=== PATIENT | female | born 1985 | race Caucasian/White ===

== ENCOUNTER 2016-12-14 10:02 | Observation (INO) ==
[2016-12-14 10:51] LABS: Basophils % 0.3 %; Eosinophils # 0.1 K/mcL (0.0-0.6); Eosinophils % 0.5 %; Hematocrit 28.7 % (35.3-44.9); Hemoglobin 9.3 g/dL (11.5-15.4); Immature Granulocytes % 0.9 % (0-4); Immature Platelets 3.5 % (1.1-6.1); Lymphocytes # 1.6 K/mcL (0.6-4.6); Lymphocytes % 17.1 %; Mean Corpuscular HGB Conc 32.4 g/dL (31.6-35.5); Mean Corpuscular Hemoglobin 26.6 pg (28.0-33.3); Mean Corpuscular Volume 82.2 fL (83.0-100.0); Mean Platelet Volume 9.7 fL (9.4-12.4); Monocytes # 0.4 K/mcL (0.0-1.3); Monocytes % 4.4 %; Neutrophils # 7.2 K/mcL (1.6-8.9); Platelet Count 226 K/mcL (140-400); Red Blood Count 3.49 M/mcL (3.82-4.97); Red Cell Distribution Width 13.7 % (11.5-14.5); Segmented Neutrophils % 76.8 %
[2016-12-14 11:05] LABS: Alanine Aminotransferase 10 Units/L (0-55); Aspartate Amino Transferase 14 Units/L (5-34); BUN/Creatinine Ratio 16 (6-26); Blood Urea Nitrogen 10 mg/dL (7-20); Lactate Dehydrogenase 156 Units/L (159-327); Uric Acid 3.9 mg/dL (2.6-6.0); eGFR For African Americans > 60 (> 60); eGFR For Non-African Americans > 60 (> 60)
[2016-12-14 11:37] LABS: Protein/Creatinine Ratio,Urine 0.31 mg/mg (0-0.20)
--- NOTE | 2016-12-14 12:34 | OB/GYN Progress Note ---
Date of Encounter: 12/14/16 Time of Encounter: 12:30 - Assessment and Plan (1) Hypertension affecting in third trimester Current Visit: Yes Status: Acute Discharge home with labor precautions and hypertension precautions. Discussed [place] NST in office twice weekly beginning Sunday12/18/[address] Lugo Discussed plan of care with Dr Melendez. Subjective - Subjective Principal diagnosis: hypertension Interval history: Ms Kapoor is a at 34.5weeks that arrives to labor and delivery from the office for hypertension 160/90's and protein in urine. She states positive movement. She denies LOF, vaginal bleeding, headache, vision changes, and epigastic pain. Antepartum ROS: movement normal, no loss of fluid, no vaginal bleeding, no contractions Objective - Vital Signs Vital Signs: Intake and Output 12/13/16 12/14/16 12/14/16 23:59 07:59 15:59 Other: Weight 214 kg Patient Weight 12/14/16 23:59 Weight 214 kg - Exam FHR: category 1 FHR comments: 150's with 15x15 accels Auscultation: left: normal Abdomen: Present: normal appearance, gravid Uterus: Present: normal. Absent: firm, tenderness - Labs Labs: Abnormal lab results RBC 3.49 M/mcL (3.82-4.97) L 12/14/16 10:40 Hgb 9.3 g/dL (11.5-15.4) L 12/14/16 10:40 Hct 28.7 % (35.3-44.9) L 12/14/16 10:40 MCV 82.2 fL (83.0-100.0) L 12/14/16 10:40 MCH 26.6 pg (28.0-33.3) L 12/14/16 10:40 Lactate Dehydrogenase 156 Units/L (159-327) L 12/14/16 10:40 Protein/Creatinin Ratio 0.31 mg/mg (0-0.20) H 12/14/16 11:22
[2016-12-17 07:25] LABS: HSV 2 Glycoprotein G IgG 0.16 IV (<=0.90)
[2016-12-17 09:28] LABS: Herpes Simplex IgG (I&II COMB) >22.40 IV
== END 2016-12-14 12:34 | disposition home or self-care (01) ==
LOC: 1NENULAB
PROVIDERS: ADMIT Obstetrics & Gynecology; ATTEND Obstetrics & Gynecology

== ENCOUNTER 2016-12-18 15:03 | Observation (INO) ==
[2016-12-18 15:51] LABS: Basophils % 0.4 %; Eosinophils # 0.1 K/mcL (0.0-0.6); Eosinophils % 0.6 %; Hematocrit 29.9 % (35.3-44.9); Hemoglobin 9.7 g/dL (11.5-15.4); Immature Granulocytes % 1.2 % (0-4); Lymphocytes # 1.6 K/mcL (0.6-4.6); Mean Corpuscular HGB Conc 32.4 g/dL (31.6-35.5); Mean Corpuscular Hemoglobin 26.4 pg (28.0-33.3); Mean Corpuscular Volume 81.3 fL (83.0-100.0); Mean Platelet Volume 9.9 fL (9.4-12.4); Monocytes # 0.5 K/mcL (0.0-1.3); Monocytes % 4.7 %; Neutrophils # 8.5 K/mcL (1.6-8.9); Platelet Count 241 K/mcL (140-400); Red Blood Count 3.68 M/mcL (3.82-4.97); Red Cell Distribution Width 13.5 % (11.5-14.5); Segmented Neutrophils % 78.1 %
[2016-12-18 16:04] LABS: Alanine Aminotransferase 9 Units/L (0-55); Aspartate Amino Transferase 13 Units/L (5-34); BUN/Creatinine Ratio 17 (6-26); Blood Urea Nitrogen 10 mg/dL (7-20); Lactate Dehydrogenase 163 Units/L (159-327); Uric Acid 3.6 mg/dL (2.6-6.0); eGFR For African Americans > 60 (> 60); eGFR For Non-African Americans > 60 (> 60)
--- NOTE | 2016-12-18 16:36 | OB/GYN Progress Note ---
Date of Encounter: 12/18/16 Time of Encounter: 16:30 - Assessment and Plan (1) and not yet delivered in third trimester Current Visit: Yes Status: Acute (2) Hypertension affecting in third trimester Current Visit: No Status: Acute will do a 24 hr urine and start labetolol 100mg BID Subjective - Subjective Interval history: Patient is a 31-year-old 2 para 1 at 35-2/7 weeks who was sent to labor and delivery from the office secondary to elevated blood pressures. Patient had blood pressures 150s over 90s in the office and she was sent up for PIH workup. Patient denies headache with vision scotoma. She did have a NST in the office today which was reactive and ultrasound shows that she has polyhydramnios with an HERBERT of 27 cm. Blood pressures in labor and delivery initially were 150s over 90s but with rest dropped into the 130s over 80s. PIH labs obtained and were within normal limits. 24 hour urine was started. Patient will be discharged home with a prescription for labetalol 100 mg twice a day she will drop off her 25 urine in the office tomorrow and is already scheduled for follow-up in 3 days. She is having contractions, but not feeling them and was not checked in the office. Antepartum ROS: other (PIH work up) Objective - Vital Signs Vital Signs: Vital Signs Temp 12/18/16 15:07 98.5 F Intake and Output 12/18/16 12/18/16 12/18/16 07:59 15:59 23:59 Other: Weight 76.4 kg Patient Weight 12/18/16 23:59 Weight 76.4 kg - Exam FHR: category 1 FHR comments: 140's reactive contractons occ q 3-5 min Auscultation: bilateral: normal Abdomen: Present: gravid Uterus: Present: firm - Labs Labs: Abnormal lab results RBC 3.68 M/mcL (3.82-4.97) L 12/18/16 15:40 Hgb 9.7 g/dL (11.5-15.4) L 12/18/16 15:40 Hct 29.9 % (35.3-44.9) L 12/18/16 15:40 MCV 81.3 fL (83.0-100.0) L 12/18/16 15:40 MCH 26.4 pg (28.0-33.3) L 12/18/16 15:40
== END 2016-12-18 16:44 | disposition home or self-care (01) ==
LOC: 1NENULAB
PROVIDERS: ADMIT Obstetrics & Gynecology; ATTEND Obstetrics & Gynecology

== ENCOUNTER 2017-01-10 10:25 | Inpatient (IN) ==
--- NOTE | 2017-01-10 11:32 | OB/GYN History & Physical ---
Date of Encounter: 01/10/17 Time of Encounter: 11:18 Assessment and Plan (1) Hypertension affecting in third trimester Current visit: Yes Status: Acute PIH blood and urine sent Cyclical blood pressures NST POC discussed with Dr Lugo (2) and not yet delivered in third trimester Current visit: Yes Status: Acute PIH blood and urine sent Cyclical blood pressures NST POC discussed with Dr Lugo History of Present Illness Chief complaint: HTN & Proteinuria HPI: Ms. Kapoor is a 32 year old female at 38 weeks 4 days that presents for a scheduled visit and growth ultrasound. She reports an active fetus and denies loss of fluid or vaginal bleeding. She reports that she has had increasing facial swelling for about 3 days but has had swelling that will resolve in her extremities until this morning when it did not go down overnight. She denies any headache, blurred vision, or epigastric pain. The fetus presents breech per her growth ultrasound. The ultrasound also shows that the fetus is in the 72nd percentile for growth and the HERBERT is 25. Her blood pressure in the office was 168/105. She is transferred from the office to labor and delivery for a PIH evaluation. Obstetrical History - Pregnancies : 2 Para: 1 Term: 1 : 0 Ab's: 0 Livin Medications and Allergies Iron Chews 325 mg PO BID 12/14/16 [History] Tablet 1 tab PO DAILY 12/14/16 [History] Labetalol [Trandate] 100 mg PO BID #60 tablet 12/18/16 [Rx] Allergies No Known Allergies Allergy (Verified 12/14/16 11:09) Review of System OB All systems PM: reviewed and no additional remarkable complaints except as stated (As per HPI) Exam - Constitutional Constitutional: well developed, well nourished, no acute distress, average body habitus - HEENT HEENT: Normocephaly, Mucus Membranes Moist, Other (mild facial edema) - Neck Neck exam: full ROM - Lungs Respiratory exam: CTAB - Cardiovascular Cardiovascular exam: RRR, +S1, +S2 - Breasts Breast: bilateral: normal - Abdomen Abdomen: Present: bowel sounds normal, gravid - Extremities Extremities exam: full ROM, pedal edema (2+) Deep Tendon Reflex Grade: 3+ Normal But Brisk - Uterus Uterus exam: Present: normal size, normal contour. Absent: tender Results All other labs normal. - VTE Reasons for not Prescribing Prophylaxis: Treatment not Indicated - Low risk for VTE
[2017-01-10 11:40] LABS: Basophils % 0.3 %; Eosinophils # 0.1 K/mcL (0.0-0.6); Eosinophils % 0.5 %; Hematocrit 29.6 % (35.3-44.9); Hemoglobin 9.4 g/dL (11.5-15.4); Immature Granulocytes % 1.2 % (0-4); Lymphocytes # 1.4 K/mcL (0.6-4.6); Mean Corpuscular HGB Conc 31.8 g/dL (31.6-35.5); Mean Corpuscular Hemoglobin 26.1 pg (28.0-33.3); Mean Corpuscular Volume 82.2 fL (83.0-100.0); Mean Platelet Volume 10.5 fL (9.4-12.4); Monocytes # 0.6 K/mcL (0.0-1.3); Neutrophils # 8.3 K/mcL (1.6-8.9); Platelet Count 224 K/mcL (140-400); Red Cell Distribution Width 15.1 % (11.5-14.5)
[2017-01-10 11:49] LABS: Protein/Creatinine Ratio,Urine 0.43 mg/mg (0-0.20)
[2017-01-10 11:54] LABS: Alanine Aminotransferase 11 Units/L (0-55); Aspartate Amino Transferase 19 Units/L (5-34); BUN/Creatinine Ratio 21 (6-26); Blood Urea Nitrogen 14 mg/dL (7-20); Lactate Dehydrogenase 189 Units/L (159-327); Uric Acid 5.5 mg/dL (2.6-6.0); eGFR For African Americans > 60 (> 60); eGFR For Non-African Americans > 60 (> 60)
[2017-01-10] MEDS: Ringers Solution, Lactated 1,000 ML IVC SCH ×3 (12:54→18:06)
[2017-01-10] MEDS ORDERED: Famotidine 20 MG/2 ML VIAL IVP ONE (15:02)
[2017-01-10] MEDS ORDERED: Metoclopramide 10 MG/2 ML VIAL IVP ONE (15:02)
[2017-01-10] MEDS ORDERED: Ondansetron 4 MG/2 ML VIAL IVP PRN (15:03)
[2017-01-10] MEDS ORDERED: Famotidine 20 MG/2 ML VIAL IVP PRN (15:03)
[2017-01-10] MEDS ORDERED: Naloxone 0.4 MG/ML INJ IVP PRN (15:03)
--- NOTE | 2017-01-10 15:18 | OB Labor Progress Note ---
Date of Encounter: 01/10/17 Time of Encounter: 15:16 Labor Progress Note - Subjective Subjective: Pt comfortable, fetus active, denies significant changes - Vital Signs Vital Signs: afeb, vss, bp 130s/90s - Cervix Cervix: 50/-3 - Heart Tones Heart Tones: 140s, CAT1 - [place]: rare ctx - Interventions Interventions: 38 wk IUP, bedside US confirms Breech presentation, vtx maternal left, preeclampsia - Plan Plan: attempt version with epidural anesthesia, if distress or failure of version, will proceed with primary c/s. R+B reviewed, ICG. Case discussed with Dr Kike Rinaldi
[2017-01-10] MEDS ORDERED: *HR* FentaNYL (PF) 100 MCG/2 ML VIAL ONE (16:02)
[2017-01-10] MEDS ORDERED: Lidocaine/EPI 1:200k 2% PF 20 ML VIAL ONE (17:20)
--- NOTE | 2017-01-10 17:26 | Anesthesia Evaluation PreOp ---
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: Denies Any Significant HX Other Medical History: Renal (frequent uti) Anesthesia History: No Prior Anesthetic Complications (never had anesthesia) : Yes Test: Positive Alcohol Use: none Drug use: none Medications and Allergies Iron Chews 325 mg PO BID 12/14/16 [History] Tablet 1 tab PO DAILY 12/14/16 [History] Labetalol [Trandate] 100 mg PO BID #60 tablet 12/18/16 [Rx] Allergies No Known Allergies Allergy (Verified 12/14/16 11:09) - Meds/Allergy Pre-op Review Medications Reviewed: Yes Allergies Reviewed: Yes Beta Blockers on Current Med List: Yes (took 01/09 1900) If Beta Blockers taken, Date/Time (Last Dose taken): 01/09 1900 Anesthesia Results - Labs 01/10/17 11:00 01/10/17 11:00 Anesthesia Exam 3 Vital Signs Time 1553 BP 131/82 Pulse 88 Resp 16 O2 Sat Height: 69 Weight: 215 NPO (# of Hours): 8 hours Pain Scale: 0 Pain Scale Used: Numeric (1 - 10) - HEENT Pupil (Motor): Pupils equal Mallampati: III Teeth: Normal Oral Opening: Greater than 3 - SERVICE LINE LAYER LOC: Oriented SERVICE LINE LAYER Motor: Normal RUE, Normal LUE, Normal RLE, Normal LLE, Normal Face SERVICE LINE LAYER Sensory: Normal: RUE, LUE, RLE, LLE, Face - Cardiac Rhythm: Regular Murmur: None JVD: No Carotid Bruit: No - Pulmonary Breath Sounds: bilateral Clear Respiratory Effort: Symmetrical Anesthesia Assess/Plan ASA Score: 2 Modified [place] Scale for Level of Consciousness: Cooperative, oriented, and tranquil Anesthetic Plan: Regional Monitoring Plan: Standard Monitors Recovery Plan: Other
--- NOTE | 2017-01-10 17:31 | Anesthesia Procedures ---
Date of Encounter: 01/10/17 Time of Encounter: 16:25 Procedures: Anesthesia - Epidural/Spinal Patient ID/Chart reviewed: Yes Patient examined: Yes OB Eval: Gestational age: 38 weeks 4 days OB Eval: : 2 OB Eval: Hx Para: 1 OB Eval: Dilated at (cm): 1 OB Eval: Contractions: Non-stressed pattern Consent Obtained: Yes Supplemental Oxygen: Nasal Cannula Supplemental Oxygen Rate (L/min): 2 Site Prep: Aseptic Technique, Sterile prep and drape, Povidone-Iodine 1% Patient position: upright Local Anesthetic: Lidocaine 1% Amount of Local Anesthetic used: 3 Touhy Needle Gauge: 18 Touhy Needle Depth (cm): 7 Catheter Depth at Skin (cm): 14 Test Dose (1.5% Lido + Epi): Volume given (mls): 3 Test Dose Result: Negative (15 ml xylocaine 2% with epi given in 5 ml increments ) Loading Dose: Fentanyl (mcg): 100 Loading Dose Administered: Thru Catheter Infusion Med: 0.125% Bupivacaine w/ 2 mcg/ml Fentanyl Infusion Rate (mls/hr): [address]: Tegaderm, Tape Interspace Used: L3-L4 Loss of Resistance (AN): Yes (air) Blood: No CSF: No Paresthesia: No Procedure: see or record for vitals, heart tones 140's
[2017-01-10] MEDS ORDERED: *HR* FentaNYL (PF) 100 MCG/2 ML VIAL EP ONE (17:32)
[2017-01-10] MEDS ORDERED: Bupivacaine-MPF 0.25% 10 ML VIAL EP ONE (17:32)
[2017-01-10] MEDS ORDERED: Epidural Premix (fent/bupiv) 110 ML EP ONE (17:36)
--- NOTE | 2017-01-10 17:36 | OB Labor Progress Note ---
Date of Encounter: 01/10/17 Time of Encounter: 17:33 Labor Progress Note - Subjective Subjective: Patient comfortable in bed post version. Epidural in place. - Cervix Cervix: 1/thick/-3 mid position and moderate softness - Heart Tones Heart Tones: FHTs 135 moderate variability with 15 x15 accels. no decels present - [place]: No contractions noted. uterus palpates soft - Interventions Interventions: Cervical galindo bulb placed without difficulty. Patient tolerated well. Fetus tolerated well - accels present with scalp stimulation. - Plan Plan: Continue routine labor management Epidural in place for pain control Vaginal delivery expected POC discussed with Dr Lugo
[2017-01-10] MEDS ORDERED: Epidural Premix (fent/bupiv) 110 ML EP SCH (17:45)
[2017-01-10] MEDS ORDERED: miSOPROStol 25 MCG TABLET PO PRN (17:55)
--- NOTE | 2017-01-10 17:56 | OB/GYN Procedure Note ---
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 The patient was placed on the surgical table and ultrasound was performed confirming breech presentation. The patient was sat up and positioned for epidural anesthesia. Epidural was placed per Vu Beaulieu CRNA successfully. The patient was then repositioned in supine presentation. heart tones were observed during this whole time and were reassuring, 130s baseline, category 1. Contractions were irregular and infrequent. A vag prep was performed and a Mclean was placed with clear urine seen once the patient was confirmed adequately comfortable with epidural. Ultrasound was placed on the abdomen again confirming breech presentation. Mineral oil was then used to coat the maternal abdomen. With pressure from the sacrum and the fetus was guided into the vertex presentation. This was confirmed with ultrasound. heart tones were auscultated and then put on the monitor. They remained category 1 with a 130s baseline. The patient was then taken out of the operating room which was a double set up for emergency and taken to a labor and delivery room for induction and anticipated vaginal delivery.
--- NOTE | 2017-01-10 23:20 | OB Labor Progress Note ---
Date of Encounter: 01/10/17 Time of Encounter: 23:18 Labor Progress Note - Subjective Subjective: The patient is comfortable, she feels some contractions - Vital Signs Vital Signs: Afebrile, vital signs stable - Cervix Cervix: 4-5/70/-2, vertex well applied - Heart Tones Heart Tones: 120s, category 1 - [place]: Contractions difficult to monitor externally - Interventions Interventions: 38 week IUP, preeclampsia status post version for breech presentation with 50 mcg of Cytotec - Plan Plan: Amniotomy performed with a large amount of clear fluid seen. IUPC placed. Plan is to continue close observation and anticipate vaginal delivery. Blood pressure monitoring and stabilization as needed
[2017-01-11] MEDS ORDERED: *HR* Ropivacaine/PF 0.2% 10 ML AMPUL ONE ×2 (00:48→04:49)
[2017-01-11] MEDS ORDERED: Epidural Premix (fent/bupiv) 110 ML EP ONE (00:48)
[2017-01-11] MEDS: Ringers Solution, Lactated 1,000 ML IVC SCH (01:10)
--- NOTE | 2017-01-11 01:17 | Anesthesia Progress Note ---
Date of Encounter: 01/11/17 Time of Encounter: 00:50 Anesthesia Note - Note Note: 01/11/17 01:14 patient complaining of back discomfort with her labor, ropivicaine 0.2% bolus dose given over 10 minutes in 3 divided increments, epidural level below t10 before bolus dose given. 3 Vital Signs Time 0050 0055 0100 BP 157/87 149/83 135/77 Pulse 73 73 66 Resp 16 16 16 O2 Sat heart tones 130's throughout
[2017-01-11] MEDS ORDERED: Oxytocin 20 units/ LR 1000 mL 20 UNIT/1,000 ML BAG IVC SCH ×2 (01:48→08:59)
--- NOTE | 2017-01-11 05:12 | Anesthesia Progress Note ---
Date of Encounter: 01/11/17 Time of Encounter: 04:55 Anesthesia Note - Note Note: 01/11/17 05:10 3 Vital Signs Time 0455 0500 0505 BP 152/91 161/87 151/94 Pulse 84 79 86 Resp 18 16 16 O2 Sat patient complaining of low abd discomfort, 10 ml Ropivicaine 0.2% given in 3 divided doses over 10 minutes for the contraction pain
--- NOTE | 2017-01-11 07:02 | OB/GYN Procedure Note ---
Delivery - Delivery Date: 01/10/17 Provider: Marti Lugo Intrapartum events: none Delivery induction: galindo, misoprostol Delivery augmentation: rupture of membranes, pitocin Delivery monitor: external FHT, external uterine, internal uterine Anesthesia: epidural Estimated Blood Loss: 100 - (s) Infant A Delivery Date: 01/11/17 Infant Delivery Time: 06:23 Presentation: vertex Position: HEAVEN Route of delivery: Gender: Male Viability: Viable Pounds: 7 Ounces: 5 at 1 minute: 6 at 5 mins: 8 Shoulder Dystocia: not encountered Specimens collected: cord blood Placenta: spontaneous, uterine exploration Cord: nuchal cord, 3 umbilical vessels, nuchal cut - Repair Episiotomy: none Laceration Description: Periurethral (repaired), Perineal - 2nd Degree - Complications Delivery complications: none Delivery comments: The patient was complete and pushing with epidural anesthesia with a spontaneous vaginal delivery in the HEAVEN position rotated to ALDA position of a male infant weighing 7 lbs. 5 oz. with Apgars of 8 at 1 minute and 9 at 5 minutes. There was a tight nuchal which was cut on the perineum. Infant was placed on the maternal abdomen. The cord was clamped. Cord blood obtained. The placenta was delivered spontaneous and intact. Right labial laceration was repaired with 4-0 Vicryl in a running nonlocking fashion. There was a second- degree perineal laceration which was not hemostatic and was repaired with 3-0 Vicryl in the usual fashion. Estimated blood loss 100 mL, complications none - Disposition Mom disposition: stable in LDR disposition: stable in LDR
[2017-01-11] MEDS ORDERED: Measles/Mumps/Rubella Vacc 0.5 ML VIAL SQ PRN (08:59)
[2017-01-11] MEDS ORDERED: Acetaminophen 325 MG TABLET PO PRN (08:59)
[2017-01-11] MEDS ORDERED: *HR* HYDROcodone/Acet 5/325 mg TABLET PO PRN (08:59)
[2017-01-11] MEDS ORDERED: Rho Immune Globulin 1,500 UNIT SYRINGE IM PRN (08:59)
[2017-01-11] MEDS ORDERED: Ibuprofen 600 MG TABLET PO PRN (08:59)
[2017-01-11] MEDS: Prenatal Vit/FA 1 EACH TABLET PO SCH (09:13)
[2017-01-12 03:32] LABS: Basophils % 0.2 %; Eosinophils # 0.1 K/mcL (0.0-0.6); Eosinophils % 0.5 %; Hematocrit 25.6 % (35.3-44.9); Hemoglobin 8.3 g/dL (11.5-15.4); Immature Granulocytes % 0.6 % (0-4); Lymphocytes # 1.8 K/mcL (0.6-4.6); Lymphocytes % 15.5 %; Mean Corpuscular HGB Conc 32.4 g/dL (31.6-35.5); Mean Corpuscular Hemoglobin 26.8 pg (28.0-33.3); Mean Corpuscular Volume 82.6 fL (83.0-100.0); Mean Platelet Volume 10.4 fL (9.4-12.4); Monocytes # 0.7 K/mcL (0.0-1.3); Monocytes % 5.8 %; Neutrophils # 8.9 K/mcL (1.6-8.9); Platelet Count 175 K/mcL (140-400); Red Cell Distribution Width 15.9 % (11.5-14.5); Segmented Neutrophils % 77.4 %
[2017-01-12 03:46] LABS: Alanine Aminotransferase 10 Units/L (0-55); Aspartate Amino Transferase 19 Units/L (5-34); BUN/Creatinine Ratio 16 (6-26); Blood Urea Nitrogen 10 mg/dL (7-20); Lactate Dehydrogenase 192 Units/L (159-327); Uric Acid 6.1 mg/dL (2.6-6.0); eGFR For African Americans > 60 (> 60); eGFR For Non-African Americans > 60 (> 60)
[2017-01-12] MEDS: Prenatal Vit/FA 1 EACH TABLET PO SCH (09:13)
--- NOTE | 2017-01-12 11:10 | Discharge Summary ---
Date of Encounter: 01/12/17 Time of Encounter: 11:07 - Discharge Diagnosis (1) Vaginal delivery Priority: Primary Status: Acute Comments: Pt states feels well ambulating without difficulty, tolerting po diet, desires discharge - Discharge Medications Prescriptions: Ibuprofen [Motrin] 600 mg PO Q6HR PRN #60 tablet PRN Reason: Pain Docusate [Colace] 100 mg PO BID #60 capsule Ferrous Sulfate 325 mg PO DAILY #60 tablet Home Medications: Tablet 1 tab PO DAILY 12/14/16 [History] Acetaminophen [Tylenol] 650 mg PO Q6HR PRN #0 tablet 01/12/17 [Rx] Docusate [Colace] 100 mg PO BID #60 capsule 01/12/17 [Rx] Ferrous Sulfate 325 mg PO DAILY #60 tablet 01/12/17 [Rx] Ibuprofen [Motrin] 600 mg PO Q6HR PRN #60 tablet 01/12/17 [Rx] Labetalol [Trandate] 200 mg PO BID tablet 01/12/17 [Rx] Allergies/Adverse Reactions: Allergies No Known Allergies Allergy (Verified 12/14/16 11:09) Data Procedures and tests throughout hospitalization: Laboratory Tests 01/10/17 01/10/17 01/10/17 11:00 11:00 11:00 WBC 10.4 RBC 3.60 L Hgb 9.4 L Hct 29.6 L MCV 82.2 L MCH 26.1 L MCHC 31.8 RDW 15.1 H Plt Count 224 MPV 10.5 Immature Gran % 1.2 Seg Neutrophils % 79.0 Lymphocytes % 13.0 Monocytes % 6.0 Eosinophils % 0.5 Basophils % 0.3 Neutrophils # 8.3 Lymphocytes # 1.4 Monocytes # 0.6 Eosinophils # 0.1 Basophils # 0.0 BUN 14 Creatinine 0.66 Est GFR ( Amer) > 60 Est GFR (Non-Af Amer) > 60 BUN/Creatinine Ratio 21 Uric Acid 5.5 AST 19 ALT 11 Lactate Dehydrogenase 189 Urine Creatinine 35 Protein/Creatinin Ratio 0.43 H Urine Total Protein 15 H 01/12/17 01/12/17 03:04 03:04 WBC 11.5 H RBC 3.10 L Hgb 8.3 L Hct 25.6 L MCV 82.6 L MCH 26.8 L MCHC 32.4 RDW 15.9 H Plt Count 175 MPV 10.4 Immature Gran % 0.6 Seg Neutrophils % 77.4 Lymphocytes % 15.5 Monocytes % 5.8 Eosinophils % 0.5 Basophils % 0.2 Neutrophils # 8.9 Lymphocytes # 1.8 Monocytes # 0.7 Eosinophils # 0.1 Basophils # 0.0 BUN 10 Creatinine 0.63 Est GFR ( Amer) > 60 Est GFR (Non-Af Amer) > 60 BUN/Creatinine Ratio 16 Uric Acid 6.1 H AST 19 ALT 10 Lactate Dehydrogenase 192 Urine Creatinine Protein/Creatinin Ratio Urine Total Protein Labs on day of discharge: Labs from last 24 hours 01/12/17 01/12/17 03:04 03:04 WBC 11.5 H RBC 3.10 L Hgb 8.3 L Hct 25.6 L MCV 82.6 L MCH 26.8 L MCHC 32.4 RDW 15.9 H Plt Count 175 MPV 10.4 Immature Gran % 0.6 Seg Neutrophils % 77.4 Lymphocytes % 15.5 Monocytes % 5.8 Eosinophils % 0.5 Basophils % 0.2 Neutrophils # 8.9 Lymphocytes # 1.8 Monocytes # 0.7 Eosinophils # 0.1 Basophils # 0.0 BUN 10 Creatinine 0.63 Est GFR ( Amer) > 60 Est GFR (Non-Af Amer) > 60 BUN/Creatinine Ratio 16 Uric Acid 6.1 H AST 19 ALT 10 Lactate Dehydrogenase 192 Date of admission: 01/10/17 10:25 Primary care physician: Peña Aparicio MD Consults: 01/11/17 08:59 Consult to [facility] [CONS] Routine Comment: Vaginal delivery, consult needed Discharging clinician: Mary Kay Hill Anticipated date of discharge: 01/12/17 - Patient Status Disposition: Home, Self-Care Condition: Good Functional capacity at discharge: independent ambulation - Discharge Instructions Follow Up With: Peña Aparicio MD [Primary Care Provider] - Marti Lugo MD [Partnered Physician] - - Diet and Activity Activity: resume usual activities as tolerated Diet: regular diet Hospital Course Reason for admission: IUP at term Delivery: Episiotomy: none Laceration: 2nd degree Other procedures: none complications: none Discharge diagnosis: IUP at term delivered [place] baby: male Hospital course: Delivery - Delivery Date: 01/10/17 Provider: Marti Lugo Intrapartum events: none Delivery induction: galindo, misoprostol Delivery augmentation: rupture of membranes, pitocin Delivery monitor: external FHT, external uterine, internal uterine Anesthesia: epidural Estimated Blood Loss: 100 - (s) A Infant Delivery Date: 01/11/17 Infant Delivery Time: 06:23 Presentation: vertex Position: HEAVEN Route of delivery: Gender: Male Viability: Viable Pounds: 7 Ounces: 5 at 1 minute: 6 at 5 mins: 8 Shoulder Dystocia: not encountered Specimens collected: cord blood Placenta: spontaneous, uterine exploration Cord: nuchal cord, 3 umbilical vessels, nuchal cut - Repair Episiotomy: none Laceration Description: Periurethral (repaired), Perineal - 2nd Degree - Complications Delivery complications: none Delivery comments: The patient was complete and pushing with epidural anesthesia with a spontaneous vaginal delivery in the HEAVEN position rotated to ALDA position of a male weighing 7 lbs. 5 oz. with Apgars of 8 at 1 minute and 9 at 5 minutes. There was a tight nuchal which was cut on the perineum. was placed on the maternal abdomen. The cord was clamped. Cord blood obtained. The placenta was delivered spontaneous and intact. Right labial laceration was repaired with 4-0 Vicryl in a running nonlocking fashion. There was a second- degree perineal laceration which was not hemostatic and was repaired with 3-0 Vicryl in the usual fashion. Estimated blood loss 100 mL, complications none - Disposition Mom disposition: stable in LDR Time Attestation: Total time spent providing and/or coordinating discharge services: Exam - Constitutional Vitals: Temp Pulse Resp BP Pulse Ox 98.3 F 85 16 145/89 98 01/12/17 07:30 01/12/17 07:30 01/12/17 07:30 01/12/17 07:30 01/12/17 03:10 General appearance IM: A&O X 3, no acute distress - Respiratory Respiratory exam: Present: CTAB - Cardiovascular Cardiovascular exam IM: Present: RRR, +S1, +S2 - GI/Abdominal GI/Abdominal exam IM: normal bowel sounds, soft - Uterine Tone: Firm Uterus Position: Midline - Extremities Exam Extremities exam IM: Present: normal inspection - Neurological Exam Neurological exam: normal gait, oriented X3 - Psychiatric Additional comments: reports good mood
[2017-01-12 11:57] VITALS: BP 134/84
== END 2017-01-12 13:35 | disposition home or self-care (01) | DRG 775 ==
LOC: 1NENULAB → OBSVTOIN 10:25 → 1NENULAB 20:23 → 1NENUOBS 01-11 09:06
PROVIDERS: ADMIT Obstetrics & Gynecology; ATTEND Obstetrics & Gynecology